=== PATIENT | male | born 1990 | race Caucasian/White ===

== ENCOUNTER 2020-01-16 18:39 | Emergency (ER) | payer BC ==
[~2020-01-16] VITALS: Ht 180.3 cm; Wt 105.3 kg
[2020-01-16 18:50] VITALS: BP 119/64
[2020-01-16] MEDS ORDERED: CYCL5TAB PO (19:12)
--- NOTE | 2020-01-16 19:12 | PHYS DOC ---
Past History Past Medical History: Anxiety, Bipolar, Depression Past Surgical History: Other Additional Past Surgical Histo: LEFT FOOT Alcohol Use: Rarely General Adult EDM: Chief Complaint: BACK PAIN OR INJURY HPI: HPI: 29-year-old male past medical history of major depression with psychotic features (on anti depressant and olanzapine), presents the ED with complaints of right-sided lumbar nonradiating sharp back pain that started while he was at work ,bending over to lift a box around 2:30 PM this afternoon. Denies any blunt trauma to the back. No history of IV drug use, alcohol abuse, diabetes or immunocompromised state. No prior back injury or surgeries, has never had any imaging of his back. Review of Systems: Review of Systems: Constitutional: Denies fever or chills Eyes: Denies change in visual acuity HENT: Denies nasal congestion or sore throat Respiratory: Denies cough or shortness of breath Cardiovascular: Denies chest pain or edema GI: Denies abdominal pain, nausea, vomiting, bloody stools or diarrhea : Denies dysuria or hematuria or increased urinary frequency or urgency Musculoskeletal: Denies joint pain or swelling Integument: Denies rash Neurologic: Denies headache, focal weakness or sensory changes, no midline back pain, neck stiffness, saddle anesthesia, urinary or bowel retention or incontinence Endocrine: Denies polyuria or polydipsia, Lymphatic: Denies swollen glands Psychiatric: Denies depression or anxiety, denies SI or HI Allergies: Allergies: Allergies Coded Allergies Type Severity Reaction Last Updated Verified No Known Drug Allergies 01/16/20 No Physical Exam: PE: Constitutional: Well developed, well nourished, no acute distress, non-toxic appearance. [] overweight HENT: Normocephalic, atraumatic, Eyes: EOMI, conjunctiva normal, no discharge. [] Neck: Normal range of motion, no midline tenderness, supple, Cardiovascular: S1 and S2 present Lungs & Thorax: Speaking in full sentences, bilateral equal chest rise Abdomen: soft, no tenderness, no masses, no pulsatile masses. [] Skin: Warm, dry, no erythema, no rash. [] Back: No midline tenderness, ttp over right SI joint, no CVA tenderness. [] Extremities: No tenderness, no cyanosis, no clubbing, ROM intact, no edema. [] Neurologic: Alert and oriented X 3, normal motor function, normal sensory function, no focal deficits noted. [] calm/walking w/o antalgic gait Psychologic: Affect normal, judgement normal, mood normal. [] Current Patient Data: Vital Signs: Vital Signs Date Time Temp Pulse Resp B/P (MAP) Pulse Ox O2 Delivery O2 Flow Rate FiO2 01/16/20 18:50 98.1 67 20 119/64 (82) 98 Room Air EKG: EKG: [] Radiology/Procedures: Radiology/Procedures: [] Heart Score: Risk Factors: Risk Factors: DM, Current or recent (<one month) smoker, HTN, HLP, family history of CAD, obesity. Risk Scores: Score 0 - 3: 2.5% MACE over next 6 weeks - Discharge Home Score 4 - 6: 20.3% MACE over next 6 weeks - Admit for Clinical Observation Score 7 - 10: 72.7% MACE over next 6 weeks - Early Invasive Strategies Course & Med Decision Making: Course & Med Decision Making Pertinent Labs and Imaging studies reviewed. (See chart for details) Concern for atraumatic right SI joint pain with no radiculopathy or neurologic deficits. We will treat conservatively with Tylenol, NSAIDs and muscle relaxers (no driving/alcohol w/this medication). Strict ED return precautions given for saddle anesthesia, urine or bowel retention or incontinence or neurologic deficits. Encouraged urgent outpatient follow-up with PMD and Ortho. Life- threatening processes were considered but are low suspicion at this time, given history and physical exam. Pt was educated on all prescription medications and adverse effects. All patient's questions were answered and pt was stable at otilio e of discharge. Life/limb-threatening differential includes but is not limited to, aortic dissection/aneurysm, cauda equina syndrome, transverse myelitis, spinal cord compression, epidural abscess or hematoma, osteomyelitis, disc herniation, surgical abdomen, stable or unstable fracture, renal colic/urosepsis, musculoskeletal injury, traumatic injury, intraabdominal or pelvic bleeding, I spoken with the patient and her caregivers. I explained the patient's condition, diagnoses and treatment plan based on the information available to me at this time. I have answered the patient and her caregiver's questions and addressed any concerns. The patient and her caregivers have a good understanding of patient's diagnosis, condition and treatment plan as can be expected at this point. Vital signs have been stable. Patient's condition is stable and appropriate for discharge from the emergency department. Patient will pursue further outpatient evaluation with primary care physician or other designated or consulting physician as outlined in the discharge instructions. The patient and/or caregivers are agreeable to this plan of care and follow-up instructions have been explained in detail. The patient and/or caregivers have received these instructions in written form and have expressed an understanding of the discharge instructions. The patient and/or caregivers are aware that any significant change of condition or worsening of symptoms should prompt immediate return to this or the closest emergency department or call to [facility]. Estefania Disclaimer: Estefania Disclaimer: This electronic medical record was generated, in whole or in part, using a voice recognition dictation system. Departure Departure: Impression: Primary Impression: Right-sided back pain Additional Impression: Sacroiliac joint pain Disposition: 01 DC HOME SELF CARE/HOMELESS Condition: STABLE Referrals: PCP,NO (PCP) FOLLOW UP WITH FAMILY MEDICINE: [facility], [facility] [address] [facility] [address] [place], [place] [id number] [place] [address], [facility] Instructions: Back Pain, Adult, Sacroiliac Joint Dysfunction Additional Instructions: FOLLOW UP WITH ORTHOPEDICS: [facility] [address] [facility], [address] [place] [address] EMERGENCY DEPARTMENT GENERAL DISCHARGE INSTRUCTIONS Thank you for coming to [facility] (ED) today and trusting us with you care. We trust that you had a positivie experience in our Emergency Department. If you wish to speak to the department management, you may call the director at [phone]. YOUR FOLLOW UP INSTRUCTIONS ARE FOLLOWS: 1. Do you have a private Doctor? If you do not have a private doctor, please ask for a resource list of physicians or clinics that may be able to assist you with follow up care. 2. The Emergency Physician has interpreted your x-rays. The X-Ray specialist will also review them. If there is a change in the findings, you will be notified in 48 hours when at all possible. 3. A lab test or culture has been done, your results will be reviewed and you will be notified if you need a change in treatment. ADDITIONAL INSTRUCTIONS AND INFORMATION: 1. Your care today has been supervised by a physician who is specially trained in emergency care. Many problems require more than one evaluation for a complete diagnosis and treatment. We recommend that you schedule your follow up appointment as recommended to ensure complete treatment of you illness or injury. If you are unable to obtain follow up care and continue to have a problem, or if your condition worsens, we recommend that you return to the ED. 2. We are not able to safely determine your condition over the phone nor are we able to give sound medical advice over the phone. For these safety reasons, if you call for medical advice we will ask you to come to the ED for further evaluation. 3. If you have any questions regarding these discharge instructions please call the ED at [phone]. SAFETY INFORMATION: In the interest of safety, wellness, and injury prevention; we encourage you to wear your sealbelt, if you smoke; quite smoking, and we encourage family to use a protective helmet for bicycling and other sporting events that present an increased risk for head injury. IF YOUR SYMPTOMS WORSEN OR NEW SYMPTOMS DEVELOP, OR YOU HAVE CONCERNS ABOUT YOUR CONDITION; OR IF YOUR CONDITION WORSENS WHILE YOU ARE WAITING FOR YOUR FOLLOW UP APPOINTMENT; EITHER CONTACT YOUR PRIMARY CARE DOCTOR, THE PHYSICIAN WHOSE NAME AND NUMBER YOU WERE GIVEN, OR RETURN TO THE ED IMMEDIATELY. Scripts Cyclobenzaprine Hcl (CYCLOBENZAPRINE HCL) 5 Mg Tablet 1 TAB PO TID for pain, #20 TAB Prov: TANESHA OCONNOR DO 01/16/20 TANESHA OCONNOR DO Jan 16, 2020 19:12
== END 2020-01-16 19:37 | disposition home or self-care (01) ==
LOC: ER 18:39
DX: M54.5 Low back pain (principal); M53.3 Sacrococcygeal disorders, not elsewhere classified; F41.9 Anxiety disorder, unspecified; F32.9 Major depressive disorder, single episode, unspecified; Z98.890 Other specified postprocedural states
CPT/HCPCS: 99283

== ENCOUNTER 2020-01-18 16:09 | Emergency (ER) | payer BC ==
[~2020-01-18] VITALS: Ht 180.3 cm; Wt 101.5 kg
[~2020-01-18 16:09] MED LIST: CYCL5TAB PO
--- NOTE | 2020-01-18 16:30 | PHYS DOC ---
Past History Past Medical History: Anxiety, Bipolar, Depression Past Surgical History: Other Additional Past Surgical Histo: LEFT FOOT Alcohol Use: Rarely Adult General Chief Complaint Chief Complaint: BACK PAIN OR INJURY HPI HPI Patient is a 29-year-old male who presents for hip asymmetry. He was seen here 2 days ago for musculoskeletal back pain after suffering a twisting type injury. He was prefer scribed Flexeril and has been taking this intermittently with significant relief in back pain. He is much improved from that injury; however, admits getting out the shower today and noticing asymmetry between his hips. Reports his right hip is bulging out more and higher riding. No obvious abnormalities, he is concerned for potential bony and/or tumorous abnormality Review of Systems Review of Systems Fourteen body systems of review of systems have been reviewed. See HPI for pertinent positives and negative responses, other ferreira all other systems are negative, non-pertinent or non-contributory Allergies Allergies Allergies Coded Allergies Type Severity Reaction Last Updated Verified No Known Drug Allergies 01/16/20 No Physical Exam Physical Exam Constitutional: Well developed, well nourished, no acute distress, non-toxic appearance. HENT: Normocephalic, atraumatic, bilateral external ears normal, oropharynx moist, no oral exudates, nose normal. Eyes: PERRLA, EOMI, conjunctiva normal, no discharge. Neck: Normal range of motion, no tenderness, supple, no stridor. Cardiovascular: Heart rate regular, sinus rhythm, no murmurs rubs or gallops Lungs & Thorax: Bilateral breath sounds clear to auscultation Abdomen: Bowel sounds normal, soft, no tenderness, no masses, no pulsatile masses. Nonsurgical abdomen, no peritoneal signs Skin: Warm, dry, no erythema, no rash. Back: No tenderness, no CVA tenderness. Slightly higher riding right iliac crest in comparison to left without any other palpable abnormalities Extremities: No tenderness, no cyanosis, no clubbing, ROM intact, no edema. Neurologic: Alert and oriented X 3, grossly normal motor & sensory function, no focal deficits noted. Psychologic: Affect normal, judgement normal, mood normal. EKG EKG [] Radiology/Procedures Radiology/Procedures PROCEDURE: PELVIS Single view pelvis dated 01/18/2020. No comparison available. CLINICAL INDICATION: High riding right hip. FINDINGS: Single AP view pelvis shows normal bony alignment. No displaced fracture. Pelvic ring is intact. No acute osseous or articular abnormality. IMPRESSION: No acute findings. Electronically signed by: Tamir Adams MD (01/18/2020 5:02 PM) [facility] Heart Score Risk Factors: Risk Factors: DM, Current or recent (<one month) smoker, HTN, HLP, family history of CAD, obesity. Risk Scores: Risk Factors: DM, Current or recent (<one month) smoker, HTN, HLP, family history of CAD, obesity. Course & Med Decision Making Course & Med Decision Making Pertinent Labs and Imaging studies reviewed. (See chart for details) Discussed most likely diagnosis of worried well Advised patient to continue supportive care practices that he was educated on extensively when seen for initial back pain visit 2 days ago Strict return precautions discussed with good understanding, all questions and concerns addressed prior to your departure in stable condition Estefania Disclaimer Estefania Disclaimer This electronic medical record was generated, in whole or in part, using a voice recognition dictation system. Departure Departure: Impression: Primary Impression: Strain of muscle, fascia and tendon of lower back, sequela Disposition: 01 DC HOME SELF CARE/HOMELESS Condition: STABLE Referrals: PCP,NO (PCP) Patient Instructions: Back Exercises Additional Instructions: As instructed prior to ER departure, please call primary care physician first thing in the morning to schedule outpatient follow-up in upcoming 7 to 14 days Continue supportive care consisting of stretches, lower back and abdominal strengthening exercises and as needed Tylenol and Motrin for pain. If pain persists, please discuss potential need for physical therapy referral in outpatient setting If any concerning signs or symptoms described today and at prior visit emerged prior to outpatient follow-up, please do not hesitate to report back for repeat evaluation It was pleasure to take care of you and I wish you a speedy recovery SILVANA YAÑEZ DO Jan 18, 2020 16:30
--- NOTE | 2020-01-18 17:05 | RAD ---
Single view pelvis dated 01/18/2020. No comparison available. CLINICAL INDICATION: High riding right hip. FINDINGS: Single AP view pelvis shows normal bony alignment. No displaced fracture. Pelvic ring is intact. No acute osseous or articular abnormality. IMPRESSION: No acute findings. Electronically signed by: Tamir Adams MD (01/18/2020 5:02 PM) MARCELO
[2020-01-18 18:09] VITALS: BP 153/76
== END 2020-01-18 18:09 | disposition home or self-care (01) ==
LOC: ER 16:09
DX: S76.011A Strain of muscle, fascia and tendon of right hip, initial encounter (principal); F41.9 Anxiety disorder, unspecified; F32.9 Major depressive disorder, single episode, unspecified; Z98.890 Other specified postprocedural states; X50.1XXA Overexertion from prolonged static or awkward postures, initial encounter; Y93.89 Activity, other specified; Y92.89 Other specified places as the place of occurrence of the external cause; Y99.8 Other external cause status
CPT/HCPCS: 72170; 99283

== ENCOUNTER 2020-04-07 21:41 | Emergency (ER) | payer BC ==
[~2020-04-07] VITALS: Ht 180.3 cm; Wt 110.0 kg
[2020-04-07] MEDS ORDERED: OLAN5TAB3 PO (21:58)
[2020-04-07] MEDS ORDERED: FLUO10CA13 PO (21:58)
--- NOTE | 2020-04-07 22:23 | PHYS DOC ---
Past History Past Medical History: Anxiety, Bipolar, Depression Past Surgical History: Other Additional Past Surgical Histo: LEFT FOOT Alcohol Use: Rarely Adult General Chief Complaint Chief Complaint: HEADACHE HPI HPI Patient is a 30-year-old male who presents with a chief complaint of headache. States he woke up this morning at about 4 AM with a headache, generalized, 4 out of 10. States he gets headaches occasionally. States it is not the worst headache of his life and over the course of a few hours probably get up to 5 out of 10 and took some Tylenol in the afternoon which gave him some relief. States he may had some mild generalized body aches and was worried that he may have Covid because there was someone at work last week that he thinks had Covid. States the main reason he came in was to be tested for Covid and the flu. Review of Systems Review of Systems Review of systems otherwise unremarkable except noted in HPI. Current Medications Current Medications Current Medications Medications (Trade) Dose Ordered Sig/Donald Start Time Stop Time Status Last Admin Dose Admin Acetaminophen (Tylenol) 1,000 mg 1X ONCE 04/07/20 22:30 04/07/20 22:31 UNV Diphenhydramine HCl (Benadryl) 25 mg 1X ONCE 04/07/20 22:30 04/07/20 22:31 UNV Ibuprofen (Motrin) 600 mg 1X ONCE 04/07/20 22:30 04/07/20 22:31 UNV Allergies Allergies Allergies Coded Allergies Type Severity Reaction Last Updated Verified No Known Drug Allergies 01/16/20 No Physical Exam Physical Exam Constitutional: Well developed, well nourished, no acute distress, non-toxic appearance. [] HENT: Normocephalic, atraumatic, bilateral external ears normal, Eyes: PERRLA, EOMI, conjunctiva normal, no discharge. [] Neck: Normal range of motion, no tenderness, supple, no stridor. [] Cardiovascular:Heart rate regular rhythm, no murmur [] Abdomen: no tenderness, Skin: Warm, dry, no erythema, no rash. [] Back: No tenderness, Extremities: No tenderness, no cyanosis, no clubbing, ROM intact, no edema. [] Neurologic: Alert and oriented X 3, normal motor function, normal sensory function, no focal deficits noted. [] Psychologic: Anxious, agitated EKG EKG [] Radiology/Procedures Radiology/Procedures [] Heart Score Risk Factors: Risk Factors: DM, Current or recent (<one month) smoker, HTN, HLP, family history of CAD, obesity. Risk Scores: Risk Factors: DM, Current or recent (<one month) smoker, HTN, HLP, family history of CAD, obesity. Course & Med Decision Making Course & Med Decision Making Patient is a 30-year-old male who presents with a headache, body aches and desire to be tested for Covid Vital signs not concerning. Physical exam noted above. Covid and flu ordered per the patient's request. Patient was quite adamant about being tested for the Covid and flu and stated that the main reason that he came here. Ordered Tylenol, ibuprofen and Benadryl for patient's headache relief, but patient decli tonja when the nurse came to administer saying he really just came here to be tested for Covid and the flu. Discussed with patient that the flu would come back today in the Covid may take 24 to 48 hours and that he should quarantine at home until the Covid test results. Patient stated that he would just go home and wait for the results of both the flu and the Covid and quarantine. Gave education on Covid and Covid quarantine and advised to follow-up with primary care physician to update on ED visit and set up a post ER follow-up if needed. Patient grateful, verbalized understanding and agreed with plan of discharge. [] Dragon Disclaimer Dragon Disclaimer This electronic medical record was generated, in whole or in part, using a voice recognition dictation system. Departure Departure: Impression: Primary Impression: Headache Additional Impression: Person under investigation for COVID-19 Disposition: 01 DC HOME SELF CARE/HOMELESS Condition: GOOD Referrals: PCP,NO (PCP) Patient Instructions: General Headache Without Cause, [id number] Additional Instructions: You have been tested for or diagnosed with COVID-19. It is an infection caused by a new type of coronavirus. COVID-19 will cause cold-like or mild flu symptoms in most. It can cause more severe symptoms like problems breathing in some. There is no treatment for COVID-19. The body will clear the infection over time. Self-care will help to ease discomfort. Steps to Take: Self-Care Rest as needed. Healthy habits may help you feel better. Steps include: Choose healthy foods including fruits and vegetables. Drink water throughout the day. Get plenty of sleep each night. If you smoke, try to quit. It may ease breathing. Avoid alcohol. Keep Others Healthy The virus can spread to others. Droplets are released every time you sneeze or cough. The droplets can get into the mouth, nose, or eyes of people near you and lead to infection. To lower the chances of spreading COVID-19 to others: Stay at home until your doctor has said it is safe to leave. If you tested positive this will mean staying isolated until both of the following are true: At least 7 days have passed since the start of illness. You are free of fever for at least 72 hours without the use of medicine. During this time: - Avoid public areas, events, or transportation. Do not return to work or school until your doctor has said it is safe to do so. - Call ahead if you need to go to a medical center. Let them know you may have COVID-19. It will help them guide you where to go. They may also ask you to wear a facemask when you come to the office. - If you call for emergency medical services, let them know you may have COVID- 19. While at home: - Try to avoid close contact with others. Stay about 6 feet away. - If possible, spend most of your time in a separate room from others. - Use a face mask if you will be in close contact with others such as sharing a room or vehicle. - Have someone wipe down common surfaces in the home. Use household photo stylist every day on areas like doorknobs, counters, or sinks. - Cough or sneeze into a tissue. Throw the tissue away right after use. If a tissue is not available, cough or sneeze into your elbow. - Wash your hands often. Wash them after sneezing or coughing. Use soap and water and wash for at least 20 seconds. Alcohol based hand service cleaner can be used if soap and water is not available. - Do not prepare food for others. Avoid sharing personal items like forks, spoons, or toothbrushes. - Avoid close contact with pets while you are sick. There is no evidence of the virus passing to pets. This is a safety step until more is known about this virus. Isolation can be frustrating. Social interaction can help. Keep in touch with friends and family through phone and tech options. You can still interact with others in your home, just keep a safe distance of about 6 feet. Follow-up: Your doctors office will check in with you to see if there are any changes in your health. You may be asked to keep track of symptoms to share with them. They will also let you know when you are clear to be in public again. Problems to Look Out For: Contact your doctor if your recovery is not going as you expect. Get emergency care if you have problems such as: - Trouble breathing - Nonstop chest pain or pressure - Changes in awareness, confusion, or problems waking - Lips or face have bluish color - Worsening of symptoms If you think you have an emergency, call for emergency medical services right away. [facility] taken from [facility] Problem Qualifiers DECLAN CARMONA MD Apr 07, 2020 22:23
[2020-04-07] MEDS ORDERED: diphenhydrAMINE HCL 25 MG CAPSULE PO ONE (22:30)
[2020-04-07] MEDS ORDERED: ACETAMINOPHEN 500 MG TABLET PO ONE (22:30)
[2020-04-07] MEDS ORDERED: IBUPROFEN 600 MG TABLET. PO ONE (22:30)
[2020-04-07 22:45] VITALS: BP 95/69
--- NOTE | 2020-04-12 09:54 | NUR ---
IP: patient notified of COVID result.
== END 2020-04-07 22:55 | disposition home or self-care (01) ==
LOC: ER 21:41
DX: R51.9 Headache, unspecified (principal); M79.10 Myalgia, unspecified site; F41.9 Anxiety disorder, unspecified; F31.9 Bipolar disorder, unspecified; Z20.822 Contact with and (suspected) exposure to COVID-19
CPT/HCPCS: 99283; C9803; U0003